=== PATIENT | male | born 1965 | race Caucasian/White ===

== ENCOUNTER 2023-08-10 08:53 | Outpatient (CLI) | payer OTHER, SELFPAY | END 2023-08-10 08:54 | disposition home or self-care (01) | PROVIDERS: Visit Provider Family Medicine | DX: I10 Essential (primary) hypertension (principal); F10.10 Alcohol abuse, uncomplicated; Z13.6 Encounter for screening for cardiovascular disorders; Z12.5 Encounter for screening for malignant neoplasm of prostate | CPT/HCPCS: 80048; 80061; 84153 ==